=== PATIENT | female | born 1970 | race Caucasian/White ===

== ENCOUNTER 2016-08-14 18:39 | Emergency (ER) | payer SELFPAY ==
[~2016-08-14] VITALS: Ht 165.1 cm; Wt 90.9 kg
[2016-08-14 18:40] VITALS: BP 135/86; PULSE 102; RESP 20; TEMP 98.3; O2SAT 96
[2016-08-14] MEDS ORDERED: AMOX500T PO (19:23)
--- NOTE | 2016-08-14 19:27 | PD ---
HPI Chief Complaint: ENT Complaint Time Seen by Provider: 19:23 Travel History International Travel<30 days: No Contact w/Intl Traveler<30days: No Traveled to known affect area: No History of Present Illness HPI 46-year-old female presents to emergency department with complaints of sore throat. She's been sick now for over a week. She has had subjective fever and chills, ear pain, difficulty swallowing and general malaise. She denies any nausea vomiting. No abdominal pain or diarrhea. No dysuria frequency. No shortness of breath or wheezing. PFSH Past Medical History Narrative Medical Hypothyroidism, uterine cancer Tetanus Vaccination: < 5 Years ?: Not LMP: UNKNOWN Past Surgical History Narrative Surgical Hysterectomy Hysterectomy: Yes (TOTAL ) Social History Alcohol Use: Yes Tobacco Use: Yes Allergies-Medications (Allergen,Severity, Reaction): Coded Allergies: No Known Allergies (Unverified , 08/14/16) Reported Meds & Prescriptions Reported Meds & Active Scripts Active Amoxicillin 500 Mg Tab 1,000 Mg PO BID Review of Systems Except as stated in HPI: all other systems reviewed are Neg Physical Exam Narrative GENERAL: Well-developed, well-nourished in no acute distress. Nontoxic appearing. HEAD: Normocephalic, atraumatic. EYES: Pupils equal round and reactive. Extraocular motions intact. No scleral icterus. No injection or drainage. ENT: TMs clear without erythema. The external auditory canals clear. Nose: clear . Posterior pharynx is erythematous and moist. Positive tonsillar edema but no exudate. Uvula midline. Airway patent. NECK: Trachea midline.Supple, nontender, moves head freely. No central bony tenderness or spasm. CARDIOVASCULAR: Regular rate and rhythm without murmurs, gallops, or rubs. RESPIRATORY: Clear to auscultation. Breath sounds equal bilaterally. No wheezes , rales, or rhonchi. GASTROINTESTINAL: Abdomen soft, non-tender, nondistended. No hepato-splenomegaly , or palpable masses. No guarding. EXTREMITIES: No clubbing, cyanosis, or edema. No joint tenderness, effusion, or edema noted. BACK: Nontender without deformity or crepitance. No flank tenderness. Data Data Last Documented VS Vital Signs Date Time Temp Pulse Resp B/P Pulse Ox O2 Delivery O2 Flow Rate FiO2 08/14/16 18:40 98.3 102 20 135/86 96 Room Air MDM Medical Decision Making Medical Screen Exam Complete: Yes Emergency Medical Condition: Yes Medical Record Reviewed: Yes Differential Diagnosis MDM: High Differential diagnoses: Strep throat, viral pharyngitis, mono, peritonsillar abscess, retropharyngeal abscess, Naun's angina Narrative Course This is pharyngitis. Diagnosis Primary Impression: Acute pharyngitis Qualified Code: J02.9 - Acute pharyngitis, unspecified etiology Patient Instructions: General Instructions Departure Forms: Tests/Procedures, Work Release Special Instructions: No work 2 days. Additional Instructions: Rest. Force fluids. Saltwater gargles. Tylenol and Advil. Chloraseptic [place] Cepastat lozenge. Amoxicillin. Follow-up with a primary care doctor in one week. Return to the ER if any problems. Med/Other Pt SpecificInfo: Prescription(s) given Scripts Amoxicillin 500 Mg Tab1,000 Mg PO BID #40 TAB Prov:Zeeshan Dominguez MD 08/14/16 Disposition: 01 DISCHARGE HOME Condition: Stable Vaughn Comer Aug 14, 2016 19:27
== END 2016-08-14 19:42 | disposition home or self-care (01) ==
LOC: NEPB 18:39
DX: J02.9 Acute pharyngitis, unspecified (principal); Z72.0 Tobacco use
CPT/HCPCS: 99282